=== PATIENT | female | born 1960 | race Caucasian/White ===

== ENCOUNTER 2017-05-15 19:10 | Emergency (ER) | payer OTHER ==
[~2017-05-15] VITALS: Ht 162.6 cm; Wt 68.0 kg
[2017-05-15] MEDS ORDERED: IBUP600 PO (22:04)
[2017-05-15] MEDS ORDERED: Norco 5-325 Ta1 EACH PO (22:04)
== END 2017-05-15 22:30 | disposition home or self-care (01) ==
LOC: ER 19:10
DX: S52.501A Unspecified fracture of the lower end of right radius, initial encounter for closed fracture (principal); W18.30XA Fall on same level, unspecified, initial encounter
CPT/HCPCS: 29125; 73110; 99283